=== PATIENT | female | born 1945 | race Caucasian/White ===

== ENCOUNTER 2022-11-02 20:45 | Emergency (ER) | payer MEDICARE, OTHER ==
[~2022-11-02] VITALS: Ht 167.6 cm; Wt 91.2 kg
[2022-11-02 20:53] VITALS: BP 163/96; PULSE 90; TEMP 97.3; O2SAT 97
[2022-11-02] MEDS ORDERED: LIDOcaine 1% 30ml preserv. free vial IJ STA (22:10)
[2022-11-02] MEDS ORDERED: HYDROmorphone inj. 0.5 MG/0.5 ML DISP.SYRIN IM ONE (22:15)
[2022-11-02 22:20] VITALS: RESP 18
[2022-11-03] MEDS ORDERED: ondansetron 4mg rapidly disintigrating tab PO ONE (00:05)
== END 2022-11-03 00:26 | disposition home or self-care (01) ==
LOC: ER 20:47
DX: S53.124A Posterior dislocation of right ulnohumeral joint, initial encounter (principal); W19.XXXA Unspecified fall, initial encounter; Y93.89 Activity, other specified; Y92.89 Other specified places as the place of occurrence of the external cause; Y99.8 Other external cause status
CPT/HCPCS: 24600; 73070; 96372; 99284; J1170; J3490